=== PATIENT | male | born 1965 | race African-American/Black ===

== ENCOUNTER 2024-03-05 07:29 | Emergency (ER) | payer OTHER, SELFPAY ==
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
[2024-03-05 07:33] VITALS: BP 150/88; PULSE 70; O2SAT 96
[2024-03-05 07:34] VITALS: BP 146/93; PULSE 66; RESP 16; TEMP 36.6; O2SAT 97; BMI 30.4
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
--- NOTE | 2024-03-05 07:43 | PC.NURSE ---
alert and oriented, respirations even and unlabored. patient refusing c-collar upon arrival during triage. stating his primary pain is in his lower back now, not his neck.
[2024-03-05] MEDS: Ibuprofen 800 MG TABLET PO (08:23)
--- NOTE | 2024-03-05 08:24 | PC.NURSE ---
medicated per the MAR for pain, awaiting results from xray. speaking in full clear sentences with no obvious signs/symptoms of distress noted.
[2024-03-05] MEDS: Cyclobenzaprine HCl 10 MG TABLET PO (09:08)
[2024-03-05 09:11] VITALS: BP 146/93; PULSE 66; RESP 16; TEMP 36.6; O2SAT 97
== END 2024-03-05 09:12 | disposition home or self-care (01) ==
PROVIDERS: Emergency Provider Emergency Medicine
DX: S39.012A Strain of muscle, fascia and tendon of lower back, initial encounter (principal); V89.2XXA Person injured in unspecified motor-vehicle accident, traffic, initial encounter; Y93.9 Activity, unspecified; Y92.410 Unspecified street and highway as the place of occurrence of the external cause; Y99.9 Unspecified external cause status
CPT/HCPCS: 72100; 99283; 99284

== ENCOUNTER 2024-03-12 08:22 | Outpatient (REF) | payer MEDICAID, SELFPAY ==
--- NOTE | ~2024-03-12 | XR_ITS ---
EXAMINATION: XR SACRUM AND COCCYX CLINICAL INFORMATION: Sacrococcygeal disorders not elsewhere classified. Evaluate for fracture. COMPARISON: 03/05/2024 lumbar spine. TECHNIQUE: 3 views of the sacrum and coccyx. FINDINGS: Moderate degenerative changes with sclerosis and narrowing in the bilateral sacroiliac joints. Degenerative changes with superior joint space narrowing and hypertrophic change on limited views of the bilateral hips. Sclerotic focus overlying the right humeral head may represent a bone island. Pubic symphysis is maintained. Limited visualization due to body habitus. Facet arthritis in the lower lumbar spine. Please refer to report for lumbar spine radiographs of 03/05/2024 for more detailed evaluation of the lumbar spine. XR/XR sacrum coccyx min 2V IMPRESSION: 1. Moderate degenerative changes bilateral sacroiliac joints. 2. Degenerative changes on limited views of the bilateral hips. 3. Facet arthritis in the lower lumbar spine. 4. Limited visualization due to bowel gas and body habitus. MRI recommended for further evaluation if there is clinical concern for fracture or other underlying pathology.
== END 2024-03-12 08:23 | disposition home or self-care (01) ==
LOC: HO.HOSX 08:22
PROVIDERS: Visit Provider Physical Medicine & Rehabilitation
DX: M54.50 Low back pain, unspecified (principal); M53.3 Sacrococcygeal disorders, not elsewhere classified
CPT/HCPCS: 72220; 99202

== ENCOUNTER 2024-03-12 08:22 | Outpatient (AMB) | payer MEDICAID, SELFPAY ==
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
== END 2024-03-12 09:17 | disposition home or self-care (01) ==
PROVIDERS: Visit Provider Physical Medicine & Rehabilitation
DX: M53.3 Sacrococcygeal disorders, not elsewhere classified (principal); M54.50 Low back pain, unspecified
CPT/HCPCS: 99204